=== PATIENT | male | born 1950 | race Caucasian/White ===

== ENCOUNTER 2020-04-21 14:24 | Emergency (ER) | payer MEDICARE, BC, SELFPAY ==
--- NOTE | ~2020-04-21 | XR_ITS ---
XR chest 2V 04/21/2020 15:05 Indication: Cough Procedure: 2 view chest Comparison: No prior studies for comparison. Findings: Heart size normal. Pacemaker leads are stable. No focal air space disease, pulmonary edema, pleural effusion or suspected pneumothorax. No acute osseous abnormality. Impression: 1: No acute cardiopulmonary disease. Reviewed, dictated and finalized at location B. [employer] Impression: 1: No acute cardiopulmonary disease.
[2020-04-21 14:39] VITALS: BP 141/83; PULSE 83; RESP 20; TEMP 37.3; O2SAT 96
--- NOTE | 2020-04-21 14:50 | ED.GENADULT ---
HPI - General Adult General Chief complaint: Upper Respiratory Infection Stated complaint: upper respiratory infection Source: patient Mode of arrival: ambulatory Limitations: no limitations History of Present Illness HPI narrative: 70 y/o male. PMH includes: HTN, AFib (on oral Elequis regimen, ARIK, Obesity. Presents to the [facility] clinic today with acute complaints of nasal congestion and productive cough for past 48 hours. Client notes intermittent dyspnea, more when he has a coughing fit . No fever, chills. No DESOUZA, otalgia, sore throat. He denies chest pain, palpitations, edema. He reports no known ill contacts. He states to have consulted his PCP this AM, who could not see him in clinic, but did call in an Antibiotic and cough drops for me . He is without additional acue c/o upon PE. Related Data Home Medications Medication Instructions Recorded Confirmed apixaban [Eliquis] 5 mg PO BID 04/21/20 04/21/20 aspirin 81 mg PO DAILY 04/21/20 04/21/20 ezetimibe-atorvastatin 1 tablet PO DAILY 04/21/20 04/21/20 irbesartan 75 mg PO DAILY 04/21/20 04/21/20 metoprolol succinate 100 mg PO BID 04/21/20 04/21/20 pravastatin 10 mg PO DAILY 04/21/20 04/21/20 Allergies Allergy/AdvReac Type Severity Reaction Status Date / Time No Known Allergies Allergy Verified 04/21/20 14:52 Review of Systems Review of Systems: Narrative: CONSTITUTIONAL: Denies fever, chills, sweats. EYES: Denies visual changes, redness, discharge. ENT: Positive rhinorrhea & congestion. No sore throat, otalgia. CARDIOVASCULAR: Denies chest pain, palpitations, edema. RESPIRATORY: Positive dyspnea & cough. No wheezing. GASTROINTESTINAL: Denies abdominal pain, nausea, vomiting, diarrhea. GENITOURINARY: Denies dysuria, hematuria, abnormal discharge SKIN: Denies rash or itching. MUSCULOSKELETAL: Denies acute back pain, joint pain, or myalgia. NEUROLOGIC: Denies numbness, or focal weakness. PSYCHIATRIC: Denies anxiety or depression. All systems reviewed & are unremarkable except as noted in HPI and below (HPI. ) [facility] Comments At the time of my signature I agree with nursing past medical history, surgical, social, and family history. There is no relevant family history pertinent to the presenting complaint. Exam Narrative: Exam Narrative: GENERAL: This is a well-nourished, well-developed patient, in no apparent distress. HEAD: normocephalic, atraumatic. EYES: PERRL. Sclera clear/white. Vision is grossly intact. EARS: External ears normal, auditory canals clear and without drainage, TMs normal without perforation. Hearing grossly intact. NOSE: External nose normal. Positive nasal discharge and PND. THROAT: Mucous membranes moist, posterior pharynx erythematous, but without exudate. PND. NECK: Neck supple, non-tender without lymphadenopathy, masses or thyromegaly. CARDIOVASCULAR: Regular rate and rhythm without murmurs, gallops, or rubs. RESPIRATORY: Breath sounds equal bilaterally. No wheezes or rales. Upper airway Rhonchi, cleared with cough. GASTROINTESTINAL: Abdomen soft, non-tender, nondistended. Bowel sounds are active. No hepato-splenomegaly, or palpable masses. No guarding. SKIN: warm, intact with no suspicious lesions or rash, good texture and turgor. NEURO: awake, alert, and oriented to person, place and time. There were no obvious focal neurologic abnormalities. Steady gait EXTREMITIES: Normal range of motion. No edema. No calf tenderness. Negative Homans sign bilaterally. BACK: Nontender without deformity or crepitance. No flank tenderness. NEURO: Alert and oriented x4, GCS 15. No focal neurological deficits. Const: General: no acute distress Orientation/consciousness: patient oriented x3 Course Course Emergency Course: Radiology imaging has been reviewed and yields non-acute findings. This client will resume treatment for URI based upon clinical examination and findings. He has been provided a Z-Pack & Tessalon Perles by his PCP today, and jak
== END 2020-04-21 15:31 | disposition home or self-care (01) ==
PROVIDERS: Emergency Provider Nurse Practitioner Adult Health; PCP Family Medicine
DX: J06.9 Acute upper respiratory infection, unspecified (principal); Z20.828 Contact with and (suspected) exposure to other viral communicable diseases; I10 Essential (primary) hypertension; I48.91 Unspecified atrial fibrillation; G47.33 Obstructive sleep apnea (adult) (pediatric); E66.9 Obesity, unspecified; Z68.32 Body mass index [BMI] 32.0-32.9, adult; Z95.5 Presence of coronary angioplasty implant and graft; Z95.0 Presence of cardiac pacemaker
CPT/HCPCS: 71046; 99213; G0463; L1830

== ENCOUNTER 2020-04-22 07:05 | Outpatient (NON) | payer MEDICARE, BC, SELFPAY ==
[2020-04-22 19:10] LABS: SARS-CoV-2 RNA PCR Negative
== END 2020-04-22 07:06 ==
PROVIDERS: PCP Family Medicine; Visit Provider Nurse Practitioner Adult Health
DX: Z20.828 Contact with and (suspected) exposure to other viral communicable diseases (principal); R06.02 Shortness of breath; R05 Cough
CPT/HCPCS: 87635; C9803; U0003

== ENCOUNTER 2021-12-09 10:03 | Emergency (ER) | payer MEDICARE, BC, SELFPAY ==
[2021-12-09 10:15] VITALS: BP 145/91; PULSE 109; RESP 18; TEMP 36.6; O2SAT 100
--- NOTE | 2021-12-09 10:29 | ED.GENADULT ---
HPI - General Adult General Chief complaint: Skin/Abscess/Foreign Body Stated complaint: bruise on rt leg Time Seen by Provider: 12/09/21 10:15 Source: patient Mode of arrival: ambulatory Limitations: no limitations History of Present Illness HPI narrative: 71 y/o male taking Eliquis for history of Afib, presented for c/o large bruise to right inner thigh, first noticed 2 days ago. Denies injury. States 3 nights ago he felt a 'cramp' in the area while sleeping. The next day he saw the bruising. Rates pain 06/08. Denies leg swelling or any other locations of bruising, denies chest pain, palpitations, shortness of breath or dizziness. Chronic numbness/tingling to the RLE, denies change. Additional history of cardiac stent, pacemaker, HTN. Related Data Home Medications Medication Instructions Recorded Confirmed apixaban 5 mg tablet (Eliquis) 5 mg PO BID 04/21/20 12/09/21 ezetimibe 10 mg tablet 10 mg PO DAILY 08/04/20 12/09/21 turmeric root extract 500 mg 500 mg PO DAILY 02/09/21 12/09/21 capsule metoprolol succinate 100 mg 100 mg PO BID 12/09/21 12/09/21 tablet,extended release 24 hr pravastatin 10 mg tablet 10 mg DAILY 12/09/21 12/09/21 Allergies Allergy/AdvReac Type Severity Reaction Status Date / Time No Known Allergies Allergy Verified 12/09/21 10:23 Review of Systems Review of Systems: CONSTITUTIONAL: Denies body aches, fever, chills, or sweats. EYES: Denies visual changes, redness, or discharge. ENT: Denies rhinorrhea, congestion, sore throat, or otalgia. CARDIOVASCULAR: Denies chest pain, palpitations, or edema. RESPIRATORY: Denies cough or dyspnea. GASTROINTESTINAL: Denies abdominal pain, nausea, vomiting, or diarrhea. SKIN: Reports bruising to leg MUSCULOSKELETAL: Denies back pain, or myalgia. NEUROLOGIC: Denies headache PMFSH Past Medical History Medical History Carpal tunnel syndrome Coronary artery disease Hyperlipemia Hypertension Obesity (BMI 30.0-34.9) ARIK (obstructive sleep apnea) Pacemaker Paroxysmal atrial fibrillation Surgical History Surgical History History of appendectomy History of carpal tunnel surgery Family History Family History Father Heart disease Mother Cerebrovascular accident Other Hypertension Social History Social History Smoking status: Never smoker Second hand tobacco smoke exposure: No Alcohol intake: never Substance use: never Substance use type: does not use Gender identity (if verbalized by the patient): Male Comments At time of signature, I have reviewed and agree with nursing past medical, surgical, social and family history unless otherwise noted. Please see nursing chart for further information. There is no relevant family history pertinent to the presenting complaint Exam Narrative: GENERAL: Well-appearing, no acute distress. EYES: conjunctivae clear, and EOMI. ENT: Mucous membranes moist. CHEST: Clear to auscultation. No respiratory distress. HEART: Regular rate and rhythm. ABD: Round, nontender SKIN/MUSC: Warm, dry. Hematoma to right inner thigh from groin to knee approx 12 inches, and medial aspect from anterior to posterior approx 9cm, soft, nontender, DP and PT pulses palpable. Ambulates with steady gait NEURO: Alert and oriented x3. PSYCH: Normal mood and affect Course Course Emergency Course: Patient is aware of diagnosis, understands and agrees to treatment plan. Anticipatory guidance given. Patient agrees to follow-up as directed and is aware of reasons to seek care at the emergency department. Portions of this record may have been created with voice recognition software Level of Care: Express Care Visit Vital Signs Vital signs: Vital Signs Temperature 98 F 12/09/21 10:15 Pulse Rat
== END 2021-12-09 10:36 | disposition short-term general hospital (02) ==
PROVIDERS: Emergency Provider Nurse Practitioner Family; PCP Family Medicine
DX: S70.11XA Contusion of right thigh, initial encounter (principal); X58.XXXA Exposure to other specified factors, initial encounter; I25.10 Atherosclerotic heart disease of native coronary artery without angina pectoris; E78.5 Hyperlipidemia, unspecified; I10 Essential (primary) hypertension; E66.9 Obesity, unspecified; Z68.34 Body mass index [BMI] 34.0-34.9, adult; G47.33 Obstructive sleep apnea (adult) (pediatric); Z95.0 Presence of cardiac pacemaker; I48.0 Paroxysmal atrial fibrillation; Z95.5 Presence of coronary angioplasty implant and graft
CPT/HCPCS: 99212; 99213; G0463

== ENCOUNTER 2021-12-09 10:51 | Emergency (ER) | payer MEDICARE, BC, SELFPAY ==
[2021-12-09 10:54] VITALS: BP 143/84; PULSE 95; RESP 16; TEMP 36.6; O2SAT 99
--- NOTE | 2021-12-09 11:10 | PC.NURSE ---
Per patient Dog known to be pt's neighbors dog and is up to date on vaccines as far as pts knows, dog can be quarantined and watched for symptoms. PA at bedside flushing wound at this time.
--- NOTE | 2021-12-09 11:40 | ED.GENADULT ---
HPI - General Adult General Chief complaint: Extremity Injury, Lower Stated complaint: bruised rt leg Time Seen by Provider: 12/09/21 11:22 History of Present Illness HPI narrative: Patient is a 71-year-old male with history of atrial fibrillation on Eliquis here for evaluation of a bruise to his right thigh. He denies known injury, states that he looked down today and noticed that his right leg was bruised. He notes discomfort over the area, but denies significant pain, he is still ambulatory without issue. He went to an urgent care facility today who referred him to the emergency department. No scrotal pain, bruising, abdominal pain, bruises over abdomen. Related Data Home Medications Medication Instructions Recorded Confirmed apixaban 5 mg tablet (Eliquis) 5 mg PO BID 04/21/20 12/09/21 ezetimibe 10 mg tablet 10 mg PO DAILY 08/04/20 12/09/21 turmeric root extract 500 mg 500 mg PO DAILY 02/09/21 12/09/21 capsule metoprolol succinate 100 mg 100 mg PO BID 12/09/21 12/09/21 tablet,extended release 24 hr pravastatin 10 mg tablet 10 mg DAILY 12/09/21 12/09/21 Allergies Allergy/AdvReac Type Severity Reaction Status Date / Time No Known Allergies Allergy Verified 12/09/21 10:56 Review of Systems Review of Systems: Gen.: Denies fevers or chills Eyes: Denies eye pain or visual change ENT: Denies congestion Respiratory: Denies shortness of breath or cough CV: Denies chest pain or palpitations GI: Denies abdominal pain nausea, emesis or diarrhea denies burning, urgency, frequency or hematuria Musculoskeletal: Denies back pain or muscle pain Neuro: Denies numbness, tingling, weakness or focal weakness Skin: Reports bruise to right thigh Except as documented, all other systems reviewed and negative [facility] Past Medical History Medical History Carpal tunnel syndrome Coronary artery disease Hyperlipemia Hypertension Obesity (BMI 30.0-34.9) ARIK (obstructive sleep apnea) Pacemaker Paroxysmal atrial fibrillation Surgical History Surgical History History of appendectomy History of carpal tunnel surgery Family History Family History Father Heart disease Mother Cerebrovascular accident Other Hypertension Social History Social History Smoking status: Never smoker Second hand tobacco smoke exposure: No Alcohol intake: never Substance use: never Substance use type: does not use Gender identity (if verbalized by the patient): Male Exam Narrative: APPEARANCE: Well appearing, no pain in distress, well-nourished. Head: Normocephalic and atraumatic. EYES: PERRLA/EOMI, conjunctivae clear NOSE: No nasal drainage EARS: External ear normal in appearance THROAT: Oropharynx is clear. Mucous membranes are moist. NECK: Supple. No adenopathy, no masses. RESPIRATORY: Airway patent, respirations nonlabored. Clear to auscultation bilaterally, no rales, rhonchi, wheezing. CARDIOVASCULAR: Regular rate and rhythm without murmurs, rubs, or gallops. ABDOMINAL: Normoactive bowel sounds. Soft, nontender, nondistended. No rebound tenderness or guarding. MUSCULOSKELETAL: No muscular tenderness to palpation of bilateral lower extremities. Extremities are warm and well-perfused. Moves all extremities well. No edema. NEURO: Normal speech. No focal neurologic deficits. SKIN: Patient has large area of ecchymosis over right medial thigh, extending proximally from his groin about [address] to his knee. no ecchymosis over abdomen or flanks. PSYCHIATRIC: Normal affect/mood. Course Vital Signs Vital signs: Vital Signs Temperature 97.9 F 12/09/21 10:54 Pulse Rate 95 12/09/21 10:54 Respiratory Rate 16 12/09/21 10:54 Blood Pressure 143/84 H 12/09/21 10:54 Pulse Oximetry 9
[2021-12-09 11:58] LABS: Basophils Percent Auto 0.4 % (0.2-1.2); Eosinophils Absolute Auto 0.1 K/mm3 (0-0.3); Eosinophils Percent Auto 1.3 % (0-4.4); Hemoglobin 14.4 g/dL (14.0-18.0); Immature Granulocyte Absolute 0.02 K/mm3 (0.00-0.031); Immature Granulocyte Percent A 0.2 % (0-0.5); Lymphocytes Absolute Auto 4.79 K/mm3 (0.9-3.2); Mean Corpuscular HGB Conc 32.7 g/dl (32-36); Mean Corpuscular Hemoglobin 29.6 pg (26-34); Mean Corpuscular Volume 90.5 fl (80-100); Mean Platelet Volume 10.4 fl (7.4-10.4); Monocytes Absolute Auto 0.6 K/mm3 (0.1-0.6); Monocytes Percent Auto 5.7 % (2.6-8.5); Neutrophils Absolute Auto 4.8 K/mm3 (1.3-6.7); Neutrophils Percent Auto 46.4 % (45.5-73.1); Platelet Count Result 184 k/mm3 (150-375); Red Blood Count 4.86 M/mm3 (4.6-6.20); Red Cell Distribution Width 14.8 % (11.5-14.5); White Blood Count 10.4 K/mm3 (4.5-10.0)
[2021-12-09 12:09] LABS: INR 1.1; Prothrombin Time 13.7 Seconds (11.1-14.7)
[2021-12-09 12:10] LABS: Partial Thromboplastin Time 24.5 SECONDS (22.3-36.8)
== END 2021-12-09 12:36 | disposition home or self-care (01) ==
PROVIDERS: Physician Assistant; Emergency Provider General Practice; PCP Family Medicine
DX: M79.81 Nontraumatic hematoma of soft tissue (principal); I48.0 Paroxysmal atrial fibrillation; I25.10 Atherosclerotic heart disease of native coronary artery without angina pectoris; I10 Essential (primary) hypertension; E78.5 Hyperlipidemia, unspecified; G47.33 Obstructive sleep apnea (adult) (pediatric); E66.9 Obesity, unspecified; Z68.34 Body mass index [BMI] 34.0-34.9, adult; Z79.01 Long term (current) use of anticoagulants
CPT/HCPCS: 36415; 85025; 85610; 85730; 99283

== ENCOUNTER 2021-12-12 08:57 | Outpatient (CLI) | payer MEDICARE, BC, SELFPAY ==
--- NOTE | ~2021-12-12 | US_ITS ---
US arterial ankle brachial ind INDICATION: Numbness in toes. Atherosclerosis. Hypertension. TECHNIQUE: Segmental pressures and plethysmographic and Doppler waveforms of the brachial and lower e xtremity arteries were obtained. COMPARISON: None. FINDINGS: Right and left brachial artery pressures of 141 mm Hg and 136 mm Hg, respectively, are concordant (no rmal difference <= 30 mmHg). The right ankle-brachial index (CHERRY) is 1.08 (normal >= 0.9-1.0). The right great toe-brachial index (TBI) is 1.03 (normal >= 0.60). The left CHERRY is 0.96. The left TBI is 0.79. IMPRESSION: 1. Normal bilateral ankle-brachial indices. Reviewed, dictated and finalized at location A.
--- NOTE | ~2021-12-12 | XR_ITS ---
XR knee LT min 4V 12/12/2021 09:19 Indication: Left knee pain Procedure: 4 views left knee Comparison: No prior studies for comparison. Findings: There is mild patellofemoral compartment osteoarthritis. No fracture or traumatic malalignm ent. No significant joint effusion. There are vascular calcifications. Impression: 1: Mild patellofemoral compartment osteoarthritis. Reviewed, dictated and finalized at location A. Impression: 1: Mild patellofemoral compartment osteoarthritis.
== END 2021-12-12 08:58 | disposition home or self-care (01) ==
PROVIDERS: PCP Family Medicine; Visit Provider Family Medicine
DX: M25.562 Pain in left knee (principal); R09.89 Other specified symptoms and signs involving the circulatory and respiratory systems; M17.12 Unilateral primary osteoarthritis, left knee
CPT/HCPCS: 73564; 93922

== ENCOUNTER 2022-04-14 14:57 | Emergency (ER) | payer MEDICARE, BC, SELFPAY ==
--- NOTE | ~2022-04-14 | XR_ITS ---
EXAMINATION: XR chest 2V Exam Date/Time: 04/14/2022 16:45 [employer] WORK[employer] HISTORY: cough, chest congestion, short of breath Comparison: None available. RESULT: Lines, tubes, and devices: Left chest pacer/defibrillator with intact leads. Lungs and pleura: Senescent changes. Bibasilar atelectasis/scar. No focal consolidation, pleural eff usion, or pneumothorax. Cardiomediastinal silhouette: Stable. Other: No acute osseous or upper abdominal finding. IMPRESSION: No acute cardiopulmonary process. Reviewed, dictated and finalized at location K. C [employer]
[2022-04-14 15:08] VITALS: BP 152/85; PULSE 79; RESP 18; TEMP 36.2; O2SAT 96
--- NOTE | 2022-04-14 16:47 | ED.URI ---
HPI - URI/Sore Throat General Chief Complaint: Upper Respiratory Infection Stated Complaint: head and chest congestion Time Seen by Provider: 04/14/22 16:41 Source: patient Mode of arrival: ambulatory Limitations: no limitations History of Present Illness HPI Narrative: the patient presents today with a five-day history of productive cough that is now nonproductive, nasal congestion, chest congestion, intermittent shortness of breath. Denies fever. He has been taking Tylenol without relief. Denies any history of asthma or COPD. Related Data Home Medications Medication Instructions Recorded Confirmed apixaban 5 mg tablet (Eliquis) 5 mg PO BID 04/21/20 12/09/21 ezetimibe 10 mg tablet 10 mg PO DAILY 08/04/20 12/09/21 turmeric root extract 500 mg 500 mg PO DAILY 02/09/21 12/09/21 capsule metoprolol succinate 100 mg 100 mg PO BID 12/09/21 12/09/21 tablet,extended release 24 hr pravastatin 10 mg tablet 10 mg DAILY 12/09/21 12/09/21 Allergies Allergy/AdvReac Type Severity Reaction Status Date / Time No Known Allergies Allergy Verified 12/09/21 10:56 Review of Systems Review of Systems: CONSTITUTIONAL: Denies body aches, fever, chills, or sweats. EYES: Denies visual changes, redness, or discharge. ENT: Denies rhinorrhea, sore throat, or otalgia.+ congestion CARDIOVASCULAR: Denies chest pain, palpitations, or edema. RESPIRATORY: + Cough, chest congestion, shortness of breath GASTROINTESTINAL: Denies abdominal pain, nausea, vomiting, or diarrhea. GENITOURINARY: Denies dysuria or hematuria. SKIN: Denies rash, itching, or wounds. MUSCULOSKELETAL: Denies back pain, joint pain, or myalgia. NEUROLOGIC: Denies headache, numbness, tingling, or weakness. PSYCH: Denies depression or anxiety. [facility] Past Medical History Medical History Carpal tunnel syndrome Coronary artery disease Hyperlipemia Hypertension Obesity (BMI 30.0-34.9) ARIK (obstructive sleep apnea) Pacemaker Paroxysmal atrial fibrillation Surgical History Surgical History History of appendectomy History of carpal tunnel surgery Family History Family History Father Heart disease Mother Cerebrovascular accident Other Hypertension Social History Social History Smoking status: Never smoker Second hand tobacco smoke exposure: No Alcohol intake: never Substance use: never Substance use type: does not use Gender identity (if verbalized by the patient): Male Comments At time of signature, I have reviewed and agree with nursing past medical, surgical, social and family history unless otherwise noted. Please see nursing chart for further information. There is no relevant family history pertinent to the presenting complaint Exam Narrative: GENERAL: mildly ill-appearing, well-nourished, and in no acute distress. HEAD: Normocephalic, atraumatic. EYES: EOMI. No redness or drainage. Conjunctivae normal. ENT: Mucous membranes pink and moist. Nares congested. No rhinorrhea. TMs normal bilaterally. Throat normal. Uvula midline. NECK: Normal AROM. Supple. No lymphadenopathy. CHEST: No respiratory distress. coarse breath sounds throughout. HEART: Regular rate and rhythm. No murmur appreciated. Normal peripheral pulses. ABDOMEN: Soft, nontender, nondistended, normal active bowel sounds. MUSCULOSKELETAL: No bony tenderness. EXTREMITIES: Normal range of motion. No edema. SKIN: Warm, dry, no rash. Capillary refill normal. Normal skin turgor. NEURO: No focal deficits. Alert and oriented x3. Gait steady. PSYCH: Normal affect. No signs of depression or anxiety. Course Course Level of Care: Express Care Visit Vital Signs Vital signs: Vital Signs Temperature 97.2 F L 04/14/22 15:08
== END 2022-04-14 17:16 | disposition home or self-care (01) ==
PROVIDERS: Emergency Provider Nurse Practitioner; PCP Family Medicine
DX: J40 Bronchitis, not specified as acute or chronic (principal); J06.9 Acute upper respiratory infection, unspecified; I25.10 Atherosclerotic heart disease of native coronary artery without angina pectoris; E78.5 Hyperlipidemia, unspecified; I10 Essential (primary) hypertension; I48.0 Paroxysmal atrial fibrillation; Z79.01 Long term (current) use of anticoagulants
CPT/HCPCS: 71046; 87804; 99213; G0463

== ENCOUNTER 2024-05-04 14:00 | Emergency (ER) | payer MEDICARE, BC, SELFPAY ==
--- NOTE | ~2024-05-04 | XR_ITS ---
EXAMINATION: XR chest 2V DATE: 05/04/2024 15:41 INDICATION: Cough. TECHNIQUE: Frontal and lateral views of the chest were obtained. COMPARISON: Chest 2 views 04/14/2022 FINDINGS: A calcified right lung nodule and calcified right hilar lymph nodes are consistent with old granulomatous disease. No pleural effusion or pneumothorax. The heart size is normal. There is a lef t chest pacer with leads in right atrium, right ventricle, and coronary sinus. IMPRESSION: 1. No acute cardiopulmonary disease. Reviewed, dictated and finalized at location A. IZATION ENGINEER
[2024-05-04 14:24] VITALS: BP 129/69; PULSE 69; RESP 16; TEMP 37.1; O2SAT 100
--- NOTE | 2024-05-04 14:57 | ED_ITS ---
HPI - URI/Sore Throat General Chief Complaint: Upper Respiratory Infection Stated Complaint: cold and congestion Time Seen by Provider: 05/04/24 14:57 Source: patient, RN notes reviewed and old records reviewed Mode of arrival: ambulatory Limitations: no limitations History of Present Illness HPI Narrative: 74-year-old male presents to the [facility] with 2 day history cough, congestion. Reports productive cough. Patient reports that he did have a sore throat that started. Onset (ago): day(s) (2) Related Data Home Medications ?Medication ?Instructions ?Recorded ?Confirmed ?Last Taken ?Type apixaban 5 mg tablet (Eliquis) 5 mg PO BID 04/21/20 06/12/23 Unknown History ezetimibe 10 mg tablet 10 mg PO DAILY 08/04/20 06/12/23 Unknown History turmeric root extract 500 mg 500 mg PO DAILY 02/09/21 06/12/23 Unknown History capsule metoprolol succinate 100 mg 100 mg PO BID 12/09/21 06/12/23 Unknown History tablet,extended release 24 hr mecobalamin (vitamin B12) 1,000 1,000 mcg PO DAILY 06/07/22 06/12/23 Unknown History mcg chewable tablet (B12 Active) rosuvastatin 20 mg tablet 20 mg PO DAILY 11/27/23 Unknown History Allergies Allergy/AdvReac Type Severity Reaction Status Date / Time No Known Allergies Allergy Verified 05/04/24 14:49 Review of Systems Review of Systems: All systems reviewed & are unremarkable except as noted in HPI and below Constitutional: Constitutional: Reports as per HPI ENT: Reports as per HPI Cardiovascular: Cardiovascular: Reports no additional cardiovascular complaints, Denies chest pain and Denies dyspnea Respiratory: Respiratory: Reports no additional respiratory complaints, Denies chest congestion, Denies cough and Denies dyspnea Gastrointestinal: Gastrointestinal: Reports no additional gastrointestinal complaints, Denies abdominal pain, Denies nausea and Denies vomiting Musculoskeletal: Musculoskeletal: Reports no additional musculoskeletal complaints Integumentary/Breasts: Skin/Breast: Reports system reviewed and no additional complaints, except as [facility]u [facility] Past Medical History Medical History Carpal tunnel syndrome Coronary artery disease Hyperlipemia Hypertension Obesity (BMI 30.0-34.9) ARIK (obstructive sleep apnea) Pacemaker Paroxysmal atrial fibrillation Vitamin B12 deficiency Surgical History Surgical History History of appendectomy History of carpal tunnel surgery Family History Family History Father Heart disease Mother Cerebrovascular accident Other Hypertension Social History Social History Smoking status: Never smoker Second hand tobacco smoke exposure: No Alcohol intake: never Substance use: never Substance use type: does not use Lack of Transportation: No Lack of Food: Never True Current Housing: I Have Housing Concerned About Future Housing: No Difficulty Paying Gas/Electric Bills: No Difficulty Paying for Meds: No Currently Unemployed: No Education: High School Diploma/GED Difficulty w/ Childcare or Family Care: No Living arrangements: with family Occupation/Education: retired Gender identity (if verbalized by the patient): Male Sexual Orientation (if Verbalized by the Patient): Straight or Heterosexual Spiritual care concerns: No Agree to blood products: Yes Comments At the time of my signature, I reviewed and agree with the nursing past medical, surgical, social, and family history. There is no relevant family history pertinent to the patient complaint. Exam Const: General: cooperative, no acute distress, well developed, alert, ill appearing chronically, tired appearing, uncomfortable and well nourished Nutritional Appearance: well nourished Orientation/consciousness: patient oriented x3 Limitations: no limitations HENMT: Head: normal to inspection Ears: hearing grossly normal bilaterally, external ears normal, TM's normal bilaterally, EAC's normal, mastoids normal and no periauricular adenopathy Face/Nose/Sinus: Normal external nose present, normal facial exam and face symmetric Face and sinus: normal facial exam and face symmetric Mouth: Yes Normal oral and palatal mucosa present, Yes lip normal and Yes tongue normal Throat: posterior oropharynx normal, uvula midline, postnasal drainage and uvular edema Eyes: General: appearance normal, both eyes and all related structures Alignment and Position: alignment normal Periorbital: periorbital findings normal Neck: Neck: normal visual inspection, full ROM, no lymphadenopathy and no meningeal signs Chest: Chest palpation & inspection: normal inspection of the chest Resp: Effort & Inspection: normal respiratory effort and able to speak in complete sentences Auscultation: crackles diffuse, no rales, no rhonchi and no wheezes Cardio: Rate: regular rate Skin: General skin exam: normal color and no rashes or lesions noted Lesions: no lesions Rashes: no rashes Wounds: no wounds Neuro: General: patient oriented x3, gait normal, tone normal, moves all extremities and no meningeal signs Cognition (Neuro): normal cognition Speech: normal speech Gait exam (Neuro): Normal gait present Extrem: General: normal to inspection, full ROM, capillary refill normal and normal gait Psych: Appearance: grossly normal and well kempt Mental Status: mental status grossly normal Speech and movement: Normal speech and movement present and Clear speech present Affect: normal affect Attitude: cooperative Course Course Level of Care: Express Care Visit Vital Signs Vital signs: Vital Signs Temperature 98.8 F 05/04/24 14:24 Pulse Rate 69 05/04/24 14:24 Respiratory Rate 16 05/04/24 14:24 Blood Pressure 129/69 05/04/24 14:24 Pulse Oximetry 100 05/04/24 14:24 Oxygen Delivery Room Air 05/04/24 14:24 Temperature 98.8 F 05/04/24 14:24 Pulse Rate 69 05/04/24 14:24 Respiratory Rate 16 05/04/24 14:24 Blood Pressure 129/69 05/04/24 14:24 Pulse Oximetry 100 05/04/24 14:24 Oxygen Delivery Room Air 05/04/24 14:24 Reviewed MDM - URI/Sore Throat MDM Narrative Medical decision making narrative: Patient sitting in exam room. Nontoxic, vitals stable. Patient presents 2 day history of URI symptoms, productive cough, generalized fatigue. Chest x-ray negative for pneumonia Flu COVID negative Patient appropriate for outpatient treatment of bronchitis with close follow-up and strict signs and symptoms go the emergency room which he verbalized understand Discharge instructions reviewed with patient, as well as provided in writing per nursing staff. The instructions also include specific and strict return/GO TO THE ER as well as f/u information. All questions have been answered, and the patient deny any further questions with discharge and discharge plan. Some parts of this dictation were generated by voice recognition software and may contain typographical and/or grammatical inaccuracies. Differential Diagnosis Differential diagnosis: Likely upper respiratory infection, otitis media, sinusitis, viral infection, bronchitis, influenza and pharyngitis Lab Data Labs: Lab Results 05/04/24 Range/Units 15:27 POC Influenza A Ag Negative (Negative) POC Influenza B Ag Negative (Negative) POC SARS CoV-2 Ag Negative (Negative) Reviewed Imaging Data Radiologist's impression: EXAMINATION: XR chest 2V DATE: 05/04/2024 15:41 INDICATION: Cough. TECHNIQUE: Frontal and lateral views of the chest were obtained. COMPARISON: Chest 2 views 04/14/2022 FINDINGS: A calcified right lung nodule and calcified right hilar lymph nodes are consistent with old granulomatous disease. No pleural effusion or pneumothorax. The heart size is normal. There is a left chest pacer with leads in right atrium, right ventricle, and coronary sinus. IMPRESSION: 1. No acute cardiopulmonary disease. Critical Care Time Critical Care Time Critical Care Time: No Discharge Plan Discharge Clinical Impression: Bronchitis Patient Disposition: Home, Self-Care Condition: Stable Instructions: Antibiotic Form, Pneumonia (ED) Additional Instructions: Your rapid COVID test were negative Your rapid flu test was negative Your chest x-ray is still pending. We will call you this evening with the results. If additional treatment is needed we will call it in at that time It is very important to treat your symptoms. Drink plenty of water, Gatorade, Pedialyte, ice pops or Jell-O. -Alternate Tylenol and Motrin per package directions for fever or pain. You can alternate every 4 hours -Antihistamine medication such as Benadryl at night and Zyrtec/Claritin/Kalee during the day can help improve symptoms. -doing daily nasal irrigations can help relieve pressure your sinuses. Things like a Neti pot -Use Flonase twice a day for 5 days then daily to help reduce the inflammation and dry up your sinuses. -You can also use Coricidin HBP or Mucinex. Be sure to drink plenty of water with this medication at least 8 ounces with every dose and it is important to drink 8 to 10 glasses of water per day. Water is a natural decongestant -Eat and drink things that are easy to swallow, like tea or soup, or popsicles. -Oral rinses such as: Salt water gargles and/or may use topical anesthetic (eg. Chloraseptic spray) or lozenges to relieve dryness or throat pain). -Frequent hand washing or hand mannequin sander and finisher is one of the best ways to prevent spread of infection. -Using a vaporizer or humidifier at night will also help thin secretions and help with coughing up phlegm. -Follow up with primary care provider in 7-10 days if condition is not improving - For new or worsening symptoms go directly to the nearest ER Patient Language: Montenegrin Prescriptions: New doxycycline monohydrate 100 mg tablet 100 mg PO BID Qty: 20 0RF No Action Eliquis 5 mg Tablet 5 mg PO BID metoprolol succinate 100 mg tablet extended release 24 hr 100 mg PO BID turmeric root extract 500 mg capsule 500 mg PO DAILY rosuvastatin 20 mg tablet 20 mg PO DAILY ezetimibe 10 mg tablet 10 mg PO DAILY mecobalamin (vitamin B12) [B12 Active] 1,000 mcg tablet,chewable 1,000 mcg PO DAILY irbesartan 150 mg tablet 150 mg PO DAILY Qty: 90 0RF Follow-up/Referrals: Janice Don MD [Primary Care Provider] - 1 Week ([facility] follow-up) Time of Disposition: 16:07
[2024-05-04 15:47] LABS: EDCOVIDSCREEN Negative (Negative); EDINFLUASCREEN Negative (Negative); EDINFLUBSCREEN Negative (Negative)
== END 2024-05-04 16:15 | disposition home or self-care (01) ==
PROVIDERS: Emergency Provider Nurse Practitioner; PCP Family Medicine
DX: J40 Bronchitis, not specified as acute or chronic (principal); Z20.822 Contact with and (suspected) exposure to COVID-19; I25.10 Atherosclerotic heart disease of native coronary artery without angina pectoris; I10 Essential (primary) hypertension; E78.5 Hyperlipidemia, unspecified; I48.0 Paroxysmal atrial fibrillation; E66.9 Obesity, unspecified; Z68.33 Body mass index [BMI] 33.0-33.9, adult; E53.8 Deficiency of other specified B group vitamins; Z95.0 Presence of cardiac pacemaker; Z79.01 Long term (current) use of anticoagulants
CPT/HCPCS: 71046; 87426; 87804; 99213; G0463

== ENCOUNTER 2024-05-10 14:35 | Emergency (ER) | payer MEDICARE, BC, SELFPAY ==
--- NOTE | ~2024-05-10 | XR_ITS ---
XR chest 2V DATE: 05/10/2024 16:03 INDICATION: Shortness of breath, congestion TECHNIQUE: 2 views COMPARISON: 05/04/2024 2 view chest FINDINGS: Borderline heart size. Coronary artery calcification. No hilar or mediastinal enlargement. Mild bilateral hyperinflation. No pulmonary infiltrate or consolidation, pleural effusion or pulmonar y vascular congestion or pneumothorax is detected. Left-sided triple lead pacemaker device with leads in expected position. IMPRESSION: Borderline heart size. Coronary artery calcification Triple lead left pacemaker Mild bilateral hyperinflation; no active pulmonary disease is evident Reviewed, dictated and finalized at location A. ABUSE RESISTANCE EDUCATION OFFICER
[2024-05-10 15:36] VITALS: BP 150/86; PULSE 80; RESP 24; TEMP 36.7; O2SAT 95
--- NOTE | 2024-05-10 15:54 | ED_ITS ---
HPI - General Adult General Chief complaint: Upper Respiratory Infection Stated complaint: sob Time Seen by Provider: 05/10/24 15:54 Source: patient, RN notes reviewed and old records reviewed Mode of arrival: ambulatory Limitations: no limitations History of Present Illness HPI narrative: 74 year old male who presents to [facility] care with complaints of increase wheezing and increased shortness of breath since last night. Patient was seen in clinic on Saturday and received some antibiotics at that time for similar symptoms with chest x-ray performed at that time and flu and Covid tests were both negative.Patient reports sinus congestion and drainage with increased cough and shortness of breath with increase in wheeing. Patient report no known fevers chills or sweats or body aches. MD complaint: shortness of breath and cough Onset (ago): week(s) (with increased symptoms since yesterday evening) Severity: moderate Treatments prior to arrival: other (claritin, Tylenol and doxycycline) Related Data Home Medications ?Medication ?Instructions ?Recorded ?Confirmed ?Last Taken ?Type apixaban 5 mg tablet (Eliquis) 5 mg PO BID 04/21/20 06/12/23 Unknown History ezetimibe 10 mg tablet 10 mg PO DAILY 08/04/20 06/12/23 Unknown History turmeric root extract 500 mg 500 mg PO DAILY 02/09/21 06/12/23 Unknown History capsule metoprolol succinate 100 mg 100 mg PO BID 12/09/21 06/12/23 Unknown History tablet,extended release 24 hr mecobalamin (vitamin B12) 1,000 1,000 mcg PO DAILY 06/07/22 06/12/23 Unknown History mcg chewable tablet (B12 Active) rosuvastatin 20 mg tablet 20 mg PO DAILY 11/27/23 Unknown History Allergies Allergy/AdvReac Type Severity Reaction Status Date / Time No Known Allergies Allergy Verified 05/10/24 15:45 Review of Systems Review of Systems: CONSTITUTIONAL: Denies fever, chills, or sweats. EYES: Denies visual changes, redness, or discharge. ENT: Denies rhinorrhea, congestion,no sore throat, or otalgia. CARDIOVASCULAR: Denies chest pain, palpitations, or edema. RESPIRATORY: Reports cough and some dyspnea. GASTROINTESTINAL: Denies abdominal pain, nausea, vomiting, or diarrhea. GENITOURINARY: Denies dysuria or hematuria. SKIN: Denies rash or itching. MUSCULOSKELETAL: Denies back pain, joint pain, or myalgia. NEUROLOGIC: Denies headache, numbness, or weakness. PSYCHIATRIC: Denies anxiety or depression. All systems reviewed & are unremarkable except as noted in HPI and below PMFSH Past Medical History Medical History (Updated 05/12/24 @ 11:41 by Mireille Guido NP) Vitamin B12 deficiency Obesity (BMI 30.0-34.9) Paroxysmal atrial fibrillation ARIK (obstructive sleep apnea) Carpal tunnel syndrome Pacemaker Coronary artery disease Hyperlipemia Hypertension Surgical History Surgical History (Updated 05/12/24 @ 11:32 by Mireille Guido NP) H/O heart artery stent History of carpal tunnel surgery History of appendectomy Family History Family History Father Heart disease Mother Cerebrovascular accident Other Hypertension Social History Social History Smoking status: Never smoker Second hand tobacco smoke exposure: No Alcohol intake: never Substance use: never Substance use type: does not use Lack of Transportation: No Lack of Food: Never True Current Housing: I Have Housing Concerned About Future Housing: No Difficulty Paying Gas/Electric Bills: No Difficulty Paying for Meds: No Currently Unemployed: No Education: High School Diploma/GED Difficulty w/ Childcare or Family Care: No Living arrangements: with family Occupation/Education: retired Gender identity (if verbalized by the patient): Male Sexual Orientation (if Verbalized by the Patient): Straight or Heterosexual Spiritual care concerns: No Agree to blood products: Yes Comments At time of signature, agree with nursing past medical, surgical, social and family history. There is no relevant family history pertinent to the presenting complaint Exam Narrative: GENERAL: ill-appearing, well-nourished, and in no acute distress. HEAD: Normocephalic, atraumatic. EYES: PERRLA and EOMI. ENT: Nares clear, clear rhinorrhea no epistaxis. Mucous membranes moist.TM's normal throat with some redness no swelling noted NECK: Supple.lymphadenopathy CHEST: scattered wheezing throughout lung ryder on auscultation. dyspnea, tachypnea no retractions SAO2 95% on room air HEART: sl irregular rate and rhythm. No murmur heard. Normal peripheral pulses. ABDOMEN: Soft, nontender, nondistended, normal active bowel sounds. EXTREMITIES: Normal range of motion. No edema. SKIN: Warm, dry, no rash. NEURO: No focal deficits. Alert and oriented x3. Course Course Emergency Course: Patient is aware of diagnosis, understands and agrees to treatment plan.? Anticipatory guidance given.? Patient agrees to follow-up as directed and is aware of reasons to seek care at the emergency department. Portions of this record may have been created with voice recognition software Level of Care: Express Care Visit Vital Signs Vital signs: Vital Signs Temperature 36.7 C 05/10/24 15:36 Pulse Rate 80 05/10/24 15:36 Respiratory Rate 24 H 05/10/24 15:36 Blood Pressure 150/86 H 05/10/24 15:36 Pulse Oximetry 95 05/10/24 15:36 Oxygen Delivery Room Air 05/10/24 15:36 Temperature 36.7 C 05/10/24 15:36 Pulse Rate 80 05/10/24 15:36 Respiratory Rate 24 H 05/10/24 15:36 Blood Pressure 150/86 H 05/10/24 15:36 Pulse Oximetry 95 05/10/24 15:36 Oxygen Delivery Room Air 05/10/24 15:36 Reviewed Medical Decision Making MDM Narrative Medical decision making narrative: Exam findings and imaging show no acute concerns or changes; patient is non- toxic appearing and is in no distress.? Patient is appropriate for outpatient treatment and follow-up Patient received Duo neb treatment while in clinic with some decrease in his wheezing and improved aeration and feelings of dyspnea. Differential Diagnosis Differential Diagnosis: URI, acute bronchitis, dyspnea, productive cough, pneumonia Medical Records Medical records reviewed: Yes I reviewed the external patient's medical records. Vital Signs Vital Signs: Vital Signs Temperature 36.7 C 05/10/24 15:36 Pulse Rate 80 05/10/24 15:36 Respiratory Rate 24 H 05/10/24 15:36 Blood Pressure 150/86 H 05/10/24 15:36 Pulse Oximetry 95 05/10/24 15:36 Oxygen Delivery Room Air 05/10/24 15:36 Temperature 36.7 C 05/10/24 15:36 Pulse Rate 80 05/10/24 15:36 Respiratory Rate 24 H 05/10/24 15:36 Blood Pressure 150/86 H 05/10/24 15:36 Pulse Oximetry 95 05/10/24 15:36 Oxygen Delivery Room Air 05/10/24 15:36 reviewed Imaging Data Attestation: I personally reviewed and interpreted this imaging study as follows: My impression: mild bilateral hyperinflation, no pulmonary infiltrate or effusion Radiologist's impression: [facility] [address] [place] [id number] XRay Report Signed Patient: Madi Simms : 1950 MR#: [id number] Age: 74 Acct:[id number] Loc: [facility] ADM Date: 05/10/24Attending Dr: Ordering Physician: Mireille Guido APRN Date of Service: 05/10/24 Procedure(s): XR chest 2V Accession Number(s): [id number] cc: Janice Don MD; Mireille Guido APRN~ XR chest 2V DATE: 05/10/2024 16:03 INDICATION: Shortness of breath, congestion TECHNIQUE: 2 views COMPARISON: 05/04/2024 2 view chest FINDINGS: Borderline heart size. Coronary artery calcification. No hilar or mediastinal enlargement. Mild bilateral hyperinflation. No pulmonary infiltrate or consolidation, pleural effusion or pulmonary vascular congestion or pneumothorax is detected. Left-sided triple lead pacemaker device with leads in expected position. IMPRESSION: Borderline heart size. Coronary artery calcification Triple lead left pacemaker Mild bilateral hyperinflation; no active pulmonary disease is evident Reviewed, dictated and finalized at location A. UTER ANALYST Dictated By: Stanley Gatica MD 05/10/24 1612 Signed By: <Electronically signed by Stanley Gatica MD in OV> Critical Care Time Critical Care Time Critical Care Time: No Discharge Plan Discharge Clinical Impression: Acute bronchitis Qualifiers: Bronchitis organism: unspecified organism Qualified Code(s): J20.9 - Acute bronchitis, unspecified Patient Disposition: Home, Self-Care Condition: Stable Instructions: Antibiotic Form, Acute Bronchitis (ED) Additional Instructions: Increase fluids especially juices and water Mucinex daily drink plenty of fluids with this medicine Tylenol or Ibuprofen for any fever or pain Continue your inhaler/nebulizer as directed Steroids as directed--take with food heat to the face 20-30 minutes 4-6 times a day for pain Salt water gargles, throat lozenges or throat sprays as desired Antibiotic as directed-- take all doses call Dr. Don's office in the morning and set up an appointment for follow up Any increased shortness of breath go to Emergency room If your symptoms persist, change or worsen significantly before you can contact your personal physician then please, without delay, go to the emergency department for further evaluation. Follow-up with PCP in 7-10 days or sooner if needed Follow up with PCP soon in regards to your blood pressure which is elevated abo ve threshold for referral. Blood pressure above 120/80 may indicate pre- hypertension. with 50/86 Patient Language: Guinean Prescriptions: New azithromycin 250 mg tablet See Rx Instructions .ROUTE .COMPLEX Qty: 6 0RF Rx Instructions: For 250 mg dose pack: take 500 mg today (day 1), then 250 mg for 4 days (days 2-5) albuterol sulfate 90 mcg/actuation HFA aerosol inhaler 2 puff inhalation QID PRN (Reason: shortness of breath or wheezing) Qty: 8.5 0RF prednisone 20 mg tablet 40 mg PO DAILY 5 Days Qty: 10 0RF No Action Eliquis 5 mg Tablet 5 mg PO BID metoprolol succinate 100 mg tablet extended release 24 hr 100 mg PO BID doxycycline monohydrate 100 mg tablet 100 mg PO BID Qty: 20 0RF turmeric root extract 500 mg capsule 500 mg PO DAILY rosuvastatin 20 mg tablet 20 mg PO DAILY ezetimibe 10 mg tablet 10 mg PO DAILY mecobalamin (vitamin B12) [B12 Active] 1,000 mcg tablet,chewable 1,000 mcg PO DAILY irbesartan 150 mg tablet 150 mg PO DAILY Qty: 90 0RF Follow-up/Referrals: Janice Don MD [Primary Care Provider] - Time of Disposition: 17:17 Quality Chirag Coma Scale Eyes: Open Verbal: Oriented and Alert Motor: Follows Commands Chirag Coma Total Score: 15
[2024-05-10] MEDS: IPRATROPIUM 0.5 MG/ALBUTEROL SULFATE 2.5 MG AMPUL.NEB 3 ML INHALATION (16:28)
--- OUTSIDE RECORDS SUMMARY | 2024-05-17 22:58 | XMS_ITS | Encounter Summary ---
Author Organization [facility] Address [address] [facility]. [place], [place] [id number] [place] [id number] Care Team Providers Care Operation Specialist Name Role Phone Unavailable Primary Care Provider Unavailabl e Encounter Details Date Type Department Care Team (Late st Contact Info) Description 03/22/1997 Abstract [facility] [address] [place] [address] , Generic Conversion, Social History Tobacco Use Types Packs/Day Years Used Date Smoking Tobacco: Never Assessed Sex and Gender Information Value Date Recorded Sex Assigned at Not on file Legal Sex Male 5:37 PM CDT Gender Identity Not on file Sexual Orientation Not on file documented as of this encounter Plan of Treatment Not on file documented as of this encounter Visit Diagnoses Not on filedocumented in this encounter
--- OUTSIDE RECORDS SUMMARY | 2024-05-17 22:58 | XMS_ITS | Encounter Summary ---
Author Organization [facility] Address [address] [facility]. [place], [place] [address] [place] [id number] Care Team Providers Care Resident Hall Director Name Role Phone Unavailable Primary Care Provider Unavailabl e Encounter Details Date Type Department Care Team (Late st Contact Info) Description 02/16/1997 Abstract [place] [address] , Generic Conversion, Social History Tobacco Use [...]
--- OUTSIDE RECORDS SUMMARY | 2024-05-17 22:58 | XMS_ITS | Encounter Summary ---
Author Organization [facility] Address [address] [facility]. [place], [place] [id number] [place] [id number] Care Team Providers Care Supervisor Water Softener Service Name Role Phone Unavailable Primary Care Provider Unavailabl e Encounter Details Date Type Department Care Team (Late st Contact Info) Description 03/02/1997 Abstract [facility] [address] [place] [address] , Generic Conversion, Social History Tobacco Use [...]
--- OUTSIDE RECORDS SUMMARY | 2024-05-17 22:58 | XMS_ITS | Clinical Summary ---
Author Organization [facility] Address [address] [facility]. [place], [place] [id number] [place] [id number] Care Team Providers Care Edi Developer Name Role Phone Unavailable Primary Care Provider Unavailabl e Social History Tobacco Use Types Packs/Day Years Used Date Smoking Tobacco: Never Assessed Sex and Gender Information Value Date Recorded Sex Assigned at Not on file Legal Sex Male 5:37 PM CDT Gender Identity Not on file Sexual Orientation Not on file Plan of Treatment Health Maintenance Due Date Last Done Comments Colorectal Cancer Screening Colonoscopy (10 Years) 1950 Hepatitis C 01/21/1970 DTaP, Tdap and Td Vaccines ( 1 - Tdap) 01/21/1971 Zoster Vaccines (1 of 2) 01/21/2002 Pneumococcal Vaccine: 65+ Ye ars (1 of 1 - PCV) 01/21/2017 COVID-19 Vaccine ( - 2023-2 5 season) 2024 Influenza Adult (#1) 2024 RSV Immunization or 60+ Years (1 - 1-dose 75+ series) 01/21/2027 Meningococcal Vaccine Aged Out No shelby monica eligible based on patient's age to complete this topic RSV Immunizations Under 20 Months Aged Out No longer eligible based on patient's age to complete this topic
--- OUTSIDE RECORDS SUMMARY | 2024-05-17 23:27 | XMS_ITS | Encounter Summary ---
Author Organization [facility] Address [address] [facility]. [place], [place] [id number] [place] [id number] Care Team Providers Care Marketing Liaison Name Role Phone Unavailable Primary Care Provider Unavailabl e Encounter Details Date Type Department Care Team (Late st Contact Info) Description 03/22/1997 Abstract [facility]VERSION [address] [place] [address] , Generic Conversion, Social History Tobacco Use [...]
--- OUTSIDE RECORDS SUMMARY | 2024-05-17 23:27 | XMS_ITS | Encounter Summary ---
Author Organization [facility] Address [address] [facility]. [place], [place] [id number] [place] [address] Care Team Providers Care Sample Maker Name Role Phone Unavailable Primary Care Provider Unavailabl e Encounter Details Date Type Department Care Team (Late st Contact Info) Description 02/16/1997 [place] [address] , Generic Conversion, Social History Tobacco Use [...]
--- OUTSIDE RECORDS SUMMARY | 2024-05-17 23:27 | XMS_ITS | Encounter Summary ---
Author Organization [facility] Address [address] [facility]. [place], [place] [id number] [place] [address] Care Team Providers Care Soiled Linen Distributor Name Role Phone Unavailable Primary Care Provider Unavailabl e Encounter Details Date Type Department Care Team (Late st Contact Info) Description 03/02/1997 Abstract [facility] CONVERSION [address] [place] [address] , Generic Conversion, Social History Tobacco Use [...]
--- OUTSIDE RECORDS SUMMARY | 2024-05-17 23:27 | XMS_ITS | Clinical Summary ---
Author Organization [facility] Address [address] [facility]. [place], [place] [id number] [place] [id number] Care Team Providers Care Soft Crab Shedder Name Role Phone Unavailable Primary Care Provider [...]
== END 2024-05-10 17:24 | disposition home or self-care (01) ==
PROVIDERS: Emergency Provider Registered Nurse; PCP Family Medicine
DX: J20.9 Acute bronchitis, unspecified (principal); I48.0 Paroxysmal atrial fibrillation; I25.10 Atherosclerotic heart disease of native coronary artery without angina pectoris; I10 Essential (primary) hypertension; E78.5 Hyperlipidemia, unspecified; E53.8 Deficiency of other specified B group vitamins; E66.9 Obesity, unspecified; Z68.33 Body mass index [BMI] 33.0-33.9, adult; Z95.0 Presence of cardiac pacemaker; Z95.5 Presence of coronary angioplasty implant and graft; Z79.01 Long term (current) use of anticoagulants
CPT/HCPCS: 71046; 99213; G0463